=== PATIENT | female | born 1960 | race Caucasian/White ===

== ENCOUNTER 2018-05-17 17:29 | Outpatient (REF) | payer OTHER, SELFPAY ==
[2018-05-17 21:46] LABS: Abs Immature Grans 0.01 k/cumm (0.0-0.09); Absolute Basophil Count 0.04 k/cumm (0.0-0.2); Absolute Eosinophil Count 0.16 k/cumm (0.0-0.7); Absolute Lymphocyte Count 2.67 k/cumm (1.2-3.4); Absolute Monocyte Count 0.52 k/cumm (0.11-0.7); Absolute Neutrophil Count 5.53 k/cumm (1.2-6.7); Basophils % 0.4; Eosinophils % 1.8; HCT 41.5 % (36.0-46.0); HGB 13.5 g/dL (12.0-15.5); Immature Grans % 0.1; Lymphocytes % 29.9; Mean Corp. HGB Concentration 32.5 g/dL (32.0-36.0); Mean Corpuscular Hemoglobin 28.2 pg (27.0-33.0); Mean Corpuscular Volume 86.8 fL (80-95); Mean Platelet Volume 11.1 fL (8.0-11.0); Monocytes % 5.8; Platelet Count 236 x1000/uL (130-400); RBC 4.78 m/cumm (4.00-5.20); RBC Distribution Width 13.3 % (11.7-14.6); White Blood Cell Count 8.93 k/cumm (4.4-10.8)
[2018-05-17 22:27] LABS: ALT 27 U/L (12-78); AST 19 U/L (15-37); Albumin 3.9 g/dL (3.4-5.0); Alkaline Phosphatase 93 U/L (46-116); Anion Gap 8.2 mmol/L (3-11); BUN 12 mg/dL (7-18); Bilirubin, Total 0.5 mg/dL (0.2-1.0); CO2 27.8 mmol/L (21.0-32.0); Calcium 8.9 mg/dL (8.5-10.1); Chloride 101 mmol/L (98-107); Cholesterol 214 mg/dL (50-200); Glucose 85 mg/dL (70-100); HDL Cholesterol 58 mg/dL (40-60); LDL CHOLESTEROL 141 mg/dL (<100); Potassium 4.3 mmol/L (3.5-5.1); Sodium 137 mmol/L (136-145); Total Protein 7.6 g/dL (6.4-8.2); Triglyceride 142 mg/dL (30-150)
== END 2018-05-17 17:49 ==
LOC: NCHCN 17:29
PROVIDERS: PCP Nurse Practitioner Family; Visit Provider Physician Assistant Medical
DX: C50.919 Malignant neoplasm of unspecified site of unspecified female breast (principal); I10 Essential (primary) hypertension; Z00.00 Encounter for general adult medical examination without abnormal findings
CPT/HCPCS: 80053; 80061; 83721; 85025

== ENCOUNTER 2018-06-11 01:05 | Outpatient (CLI) | payer OTHER, SELFPAY ==
--- NOTE | 2018-06-11 13:25 | DI.MAMMO_ITS ---
SYMPTOM/DIAGNOSIS: SCREENING, Z12.31, PERSONAL H/O LT BREAST CA, LUMPECTOMY MAMMOGRAMS: Mammograms were interpreted according to the usual protocol including computer analysis with CAD system, tomosynthesis and C view imaging. Comparison is made with prior examinations. Breast density, category B. The patient is status post left lumpectomy. No suspicious masses or microcalcifications are seen. There has been no significant change compared to the prior examinations. IMPRESSION: No evidence for malignancy. Yearly mammography is recommended. Category 2. The findings were discussed with the patient on the date of the examination. SA ASSESSMENT OF FINDINGS: Negative with benign findings. Category 2. Patient will receive a letter notifying them of these results. BI-RADS category B. There are scattered areas of fibroglandular density.
== END 2018-06-11 01:25 ==
PROVIDERS: PCP Nurse Practitioner Family; Visit Provider Nurse Practitioner Family
DX: Z12.31 Encounter for screening mammogram for malignant neoplasm of breast (principal); Z85.3 Personal history of malignant neoplasm of breast; Z98.890 Other specified postprocedural states
CPT/HCPCS: 77063; 77067

== ENCOUNTER 2018-12-02 08:17 | Outpatient (REF) | payer OTHER, SELFPAY ==
[2018-12-02 13:12] LABS: Uric Acid 5.3 mg/dL (2.6-6.0)
[2018-12-02 13:46] LABS: ESR 24 MM/HR (0-30)
== END 2018-12-02 08:37 ==
LOC: NCHCN 08:17
PROVIDERS: PCP Physician Assistant Medical; Visit Provider Physician Assistant Medical
DX: M79.672 Pain in left foot (principal)
CPT/HCPCS: 85652; 84550; 86140

== ENCOUNTER 2018-12-21 16:35 | Outpatient (CLI) | payer OTHER, SELFPAY ==
--- NOTE | 2018-12-21 16:28 | DI.RAD_ITS ---
SYMPTOM/DIAGNOSIS: LT FOOT PAIN, M79.671 LEFT FOOT: The bony structures are normally mineralized. A moderate hallux valgus deformity is demonstrated and there are degenerative changes involving the first metatarsal phalangeal joint. A small calcaneal spur is identified. There is no evidence of a fracture or dislocation.
== END 2018-12-21 16:55 ==
PROVIDERS: PCP Physician Assistant Medical; Visit Provider Physician Assistant Medical
DX: M79.672 Pain in left foot (principal); M20.12 Hallux valgus (acquired), left foot; M19.072 Primary osteoarthritis, left ankle and foot; M77.32 Calcaneal spur, left foot
CPT/HCPCS: 73630

== ENCOUNTER 2019-02-04 16:14 | Outpatient (REF) | payer OTHER, SELFPAY ==
--- NOTE | 2019-02-04 15:50 | PAPFT_PTH ---
PATIENT: Yulisa Campos LOC: [facility] U#:[id number] AGE/SX: 58/F ROOM: RE02/04/[address]: LILIYA Dave : 1960 BED: DIS: 02/04/2019 SPEC #: [id number] RECD: 02/04/19 17:37 STATUS: CHYNA REFracisco #: [id number] GALA: 02/04/19 15:[address]: Merry Hugo DEPT: [facility] Cytology RECD BY: Ligia Omalley ENTERED: 02/04/19 17:37 SP TYPE: PAPFT ELLIOT DR: Naun Carrillo Tissues: 1 - CX/ENDOCX FOR PAP SMEARS Procedures: PAP THIN PREP/UVM Screening HPV DNA PROBE Comments: [id number]
== END 2019-02-04 16:34 ==
LOC: LBN 16:14
PROVIDERS: PCP Physician Assistant Medical; Visit Provider Nurse Practitioner Family
DX: Z12.4 Encounter for screening for malignant neoplasm of cervix (principal); Z11.51 Encounter for screening for human papillomavirus (HPV)
CPT/HCPCS: 88142; 87624

== ENCOUNTER 2019-05-23 18:25 | Outpatient (REF) | payer OTHER, SELFPAY ==
[2019-05-23 22:36] LABS: Anion Gap 10.9 mmol/L (3-11); BUN 13 mg/dL (7-18); CO2 27.1 mmol/L (21.0-32.0); CREATININE 0.74 mg/dL (0.55-1.02); Calcium 9.4 mg/dL (8.5-10.1); Calculated LDL 153 mg/dL; Chloride 101 mmol/L (98-107); Cholesterol 239 mg/dL (50-200); Glucose 87 mg/dL (70-100); HDL Cholesterol 60 mg/dL (40-60); Potassium 4.6 mmol/L (3.5-5.1); Sodium 139 mmol/L (136-145); Triglyceride 133 mg/dL (30-150)
== END 2019-05-23 18:45 ==
LOC: NCHCN 18:25
PROVIDERS: PCP Physician Assistant Medical; Visit Provider Nurse Practitioner Family
DX: Z00.00 Encounter for general adult medical examination without abnormal findings (principal); Z13.228 Encounter for screening for other metabolic disorders; Z13.220 Encounter for screening for lipoid disorders
CPT/HCPCS: 80048; 80061

== ENCOUNTER 2019-06-13 01:01 | Outpatient (CLI) | payer OTHER, SELFPAY ==
--- NOTE | 2019-06-13 08:52 | DI.MAMMO_ITS ---
EXAM: MG MAMMO SCREENING 60 MIN DUR CLINICAL HISTORY: Personal Hx L Breast Cancer - lumpectomy, screening, Z12.31 TECHNIQUE: Mammograms were interpreted according to the usual protocol including computer analysis w [facility] CAD system, tomosynthesis and C-view imaging. COMPARISON: 2009 through 2017. FINDINGS: Breast Density - Category B - Scattered areas of fibroglandular density lumpectomy scarring seen in the lower inner quadrant of the left breast. No suspicious masses suspic ious seen in change in either breast. IMPRESSION: BI-RADS Cat 2 - Benign Findings, no specific evidence of malignancy at this time. Routine screening e xaminations are suggested at yearly intervals in this age group according to the ACS ACR guidelines. Breast Density - Category B - Scattered areas of fibroglandular density
== END 2019-06-13 01:21 ==
PROVIDERS: PCP Physician Assistant Medical; Visit Provider Nurse Practitioner Family
DX: Z12.31 Encounter for screening mammogram for malignant neoplasm of breast (principal); Z85.3 Personal history of malignant neoplasm of breast; Z98.890 Other specified postprocedural states
CPT/HCPCS: 77063; 77067

== ENCOUNTER 2019-07-26 00:16 | Outpatient (CLI) | payer OTHER, SELFPAY ==
--- NOTE | 2019-07-26 09:30 | ETT_ITS ---
APPROVED REPORT Exam: Exercise Treadmill Patient Location: Out-Patient Room/Bed: Stress Nurse: Tona Stephenson RN BMI: 30.11 Baseline Rhythm: NSR Indications: Pre-Operative CV Evaluation Medical History Medical History: HTN, Hyperlipidemia Cardiac Medications: Aspirin, Atenolol, Losartan Allergies: No known drug allergies Cardiac Risk Factors: HTN, Hyperlipidemia, FHX of CAD Pretest Chest Pain Characteristics: No chest pain Exercise History: Physically active Lung Sounds: Clear to auscultation Heart Sounds: Regular Stress Test Details Test: Exercise stress testing was performed using a Ja protocol. Rest Stress HR Resting HR: 86 bpm Max Heart Rate (APMHR): 160 bpm Resting HR Supine: 86 bpm Target HR (85% APMHR): 136 bpm Resting HR Standin bpm Max HR Achieved: 154 bpm % of APMHR: 96 Recovery HR: 94 bpm HR response to stress: Accelerated HR response to stress BP Resting BP: 184/100 mmHg Resting BP Supine: 184/100 mmHg Resting BP Standin/98 mmHg Max BP: 214/100 mmHg Recovery BP: 190/100 mmHg BP response to stress: Abnormal hypertensive response to stress. ECG Resting ECG: Sinus Rhythm Stress ECG: Sinus Tachycardia ST Change: Normal Arrhythmia: None Recovery ECG: Sinus Rhythm Recovery ST Change: Normal Time of Change: [address] Deviation: 0 mm Recovery Arrhythmia: None Clinical Time of Stop for Ja: 6:00 Reason for Termination: Target HR Achieved, elevated BP Exercise duration: 6 min0 sec Highest Stage Achieved: Stage 2: 2.5 mph at 12% grade. Exercise capacity: 7.05 METs Functional Capacity: Average Capacity Stress ECG Conclusion 1. She exercised for a total of 6 minutes (7 METS). This represents average exercise capacity 2. There were no ST changes associated with stress that would suggest ischemia 3. The Tellez Score (5) estimates an annual cardiovascular mortality of 1% and a five year survival of 94%. Using the Tellez Score there is a low probability of any angiographic coronary disease. Protocol Used: Ja Protocol Stress Test Summary STAGE Time (mins) Speed (mph) Grade (%) HR BP SYMPTOMS METS Supine 86 184/100 Standing 87 182/98 1 3 1.7 10 146 200/98 none 4.6 2 6 2.5 12 150 208/104 none 7 3 9 3.4 14 10.2 4 12 4.2 16 12.9 5 15 5.0 18 17.2 1 min recovery 128 214/100 3 min recovery 98 194/100 6 min recovery 94 190/100
== END 2019-07-26 00:36 ==
PROVIDERS: PCP Physician Assistant Medical; Visit Provider Surgery
DX: R07.89 Other chest pain (principal); I10 Essential (primary) hypertension; E78.5 Hyperlipidemia, unspecified; Z01.810 Encounter for preprocedural cardiovascular examination; Z82.49 Family history of ischemic heart disease and other diseases of the circulatory system
CPT/HCPCS: 93017

== ENCOUNTER 2020-05-28 17:56 | Outpatient (REF) | payer OTHER, SELFPAY ==
[2020-05-28 20:08] LABS: Anion Gap 6.6 mmol/L (3-11); BUN 10 mg/dL (7-18); CO2 28.4 mmol/L (21.0-32.0); CREATININE 0.73 mg/dL (0.55-1.02); Calcium 9.3 mg/dL (8.5-10.1); Calculated LDL 140 mg/dL (<100); Chloride 103 mmol/L (98-107); Cholesterol 220 mg/dL (<200); Glucose 85 mg/dL (74-106); HDL Cholesterol 57 mg/dL (40-60); Potassium 4.4 mmol/L (3.5-5.1); Sodium 138 mmol/L (136-145); Triglyceride 117 mg/dL (<150)
== END 2020-05-28 18:16 ==
LOC: NCHCN 17:56
PROVIDERS: PCP Physician Assistant Medical; Visit Provider Nurse Practitioner Family
DX: E78.5 Hyperlipidemia, unspecified (principal); I10 Essential (primary) hypertension
CPT/HCPCS: 80048; 80061

== ENCOUNTER 2020-06-21 01:41 | Outpatient (CLI) | payer OTHER, SELFPAY ==
--- NOTE | 2020-06-21 08:00 | DI.MAMMO_ITS ---
EXAM: MG MAMMO SCREENING 60 MIN DUR CLINICAL HISTORY: breast cancer screening,PERSONAL H/O LT BREAST CA, LUMPECTOMY,Z12.39 TECHNIQUE: Bilateral full field digital CC and MLO mammographic images were obtained with 3D tomosyn thesis and utilizing computer aided detection (CAD). COMPARISON: Available for comparison. FINDINGS: Masses/Architectural Distortion: None seen. Status post left lumpectomy. Microcalcifications: No suspicious pleomorphic-type are seen. Skin Thickening/Nipple Retraction: None. IMPRESSION: 1. No significant interval change with no specific features of malignancy noted. 2. Unless there is more urgent need, screening mammography is recommended, as per [place] [employer] guidelines. 3. Findings were discussed with the patient on the date of the examination. BI-RADS Category 2 - Benign Findings Breast Density - Category B - Scattered areas of fibroglandular density A negative radiographic report should not delay biopsy if a dominant or clinically suspicious mass is present. Up to ten percent of cancers are not identified on mammography. A negative report may reinforce clinical impression. Adenosis and dense breasts may obscure an underlying neoplasm. False positive reports average 6 to 10%. Patient will receive a letter notifying them of these results.
== END 2020-06-21 02:01 ==
PROVIDERS: PCP Nurse Practitioner Family; Visit Provider Nurse Practitioner Family
DX: Z12.31 Encounter for screening mammogram for malignant neoplasm of breast (principal); Z85.3 Personal history of malignant neoplasm of breast
CPT/HCPCS: 77063; 77067

== ENCOUNTER 2020-07-24 08:32 | Outpatient (REF) | payer SELFPAY ==
[2020-07-26 18:35] LABS: Patient Race White; SARS-CoV-2 RNA Undetected (Undetected); SARS-CoV-2 Specimen Source Nasal
== END 2020-07-24 08:52 ==
LOC: NCHCN 08:32
PROVIDERS: PCP Nurse Practitioner Family; Visit Provider Nurse Practitioner Family
DX: Z11.59 Encounter for screening for other viral diseases (principal)
CPT/HCPCS: U0003

== ENCOUNTER 2021-05-29 21:59 | Outpatient (REF) | payer OTHER, SELFPAY ==
[2021-05-29 19:50] LABS: HCT 41.2 % (36.0-46.0); HGB 13.2 g/dL (11.2-15.7)
[2021-05-29 19:59] LABS: ALT 32 U/L (14-59); AST 18 U/L (15-37); Alkaline Phosphatase 89 U/L (46-116); Anion Gap 8.6 mmol/L (3-11); BUN 9 mg/dL (7-18); Bilirubin, Total 0.5 mg/dL (0.2-1.0); CO2 29.4 mmol/L (21.0-32.0); CREATININE 0.8 mg/dL (0.55-1.02); Calcium 9.5 mg/dL (8.5-10.1); Calculated LDL 122 mg/dL (<100); Chloride 102 mmol/L (98-107); Cholesterol 209 mg/dL (<200); Glucose 94 mg/dL (74-106); HDL Cholesterol 53 mg/dL (40-60); Potassium 4.5 mmol/L (3.5-5.1); Sodium 140 mmol/L (136-145); Total Protein 7.6 g/dL (6.4-8.2); Triglyceride 174 mg/dL (<150)
[2021-05-29 20:29] LABS: Hemoglobin A1C 6.6 % (<5.7)
== END 2021-05-29 22:00 | disposition home or self-care (01) ==
LOC: NCHCN 21:59
PROVIDERS: PCP Nurse Practitioner Family; Visit Provider Physician Assistant Medical
DX: Z00.00 Encounter for general adult medical examination without abnormal findings (principal); E78.5 Hyperlipidemia, unspecified; Z85.3 Personal history of malignant neoplasm of breast; Z13.1 Encounter for screening for diabetes mellitus
CPT/HCPCS: 80053; 80061; 83036; 85014; 85018

== ENCOUNTER 2021-07-01 01:23 | Outpatient (CLI) | payer OTHER, SELFPAY ==
--- NOTE | 2021-07-01 15:01 | DI.MAMMO_ITS ---
Exam(s) MG MAMMO SCREENING 60 MIN DUR EXAM: MG MAMMO SCREENING 60 MIN DUR CLINICAL HISTORY: breast cancer screening,Z12.39, PERSONAL H/O BREAST CA. TECHNIQUE: Bilateral full field digital CC and MLO mammographic images were obtained with 3D tomosyn thesis and utilizing computer aided detection (CAD). COMPARISON: Prior mammograms dating back to 2011, the most recent being June 2020. FINDINGS: There are no CAD designations Left breast lumpectomy site remains stable exception of a benign appearing calcification at this leve l, not previously present.. There are no new spiculated masses nor malignant appearing microcalcification groups. There is no new significant architectural distortion nor skin thickening-retraction. IMPRESSION: Benign findings. No radiographic evidence of malignancy. BI-RADS Category 2 - Benign Findings Breast Density - Category B - Scattered areas of fibroglandular density Breast density Category C or D implies that the patient has dense breast tissue. Dense breast tissue can make it harder to find cancer on a mammogram. Dense breast tissue is also associated with an incr eased risk of breast cancer. This information about the result of the mammogram report was provided to the patient to raise their awareness. Use this report when you speak with the patient about their risks for breast cancer, which includes their family history. At that time, you may recommend additional screening tests (Ultrasoun d or MRI) as these tests may add significant information. A negative radiographic report should not delay biopsy if a dominant or clinically suspicious mass is present. Up to ten percent of cancers are not identified on mammography. A negative report may reinforce clinical impression. Adenosis and dense breasts may obscure an underlying neoplasm. False positive reports average 6 to 10%. Patient will receive a letter notifying them of these results.
== END 2021-07-01 01:43 ==
PROVIDERS: PCP Nurse Practitioner Family; Visit Provider Nurse Practitioner Family
DX: Z12.31 Encounter for screening mammogram for malignant neoplasm of breast (principal); Z85.3 Personal history of malignant neoplasm of breast
CPT/HCPCS: 77063; 77067

== ENCOUNTER → 2022-02-05 16:37 | Outpatient (CLI) | payer OTHER, SELFPAY ==
--- NOTE | 2022-02-05 14:26 | DI.RAD_ITS ---
Exam(s) XR FOOT LT COMPLETE EXAM: XR FOOT LT COMPLETE CLINICAL HISTORY: LEFT FOOT PAIN - M79.672 TECHNIQUE: COMPARISON: CR XR foot LT complete from 12/21/2018 FINDINGS: Three views were obtained. There are small enthesophytes of the sites of attachment of plantar fasci a and Achilles tendon on the calcaneus. There are mild bustillo articular degenerative changes of the gloria nts of the foot. There is a mild hallux valgus deformity. No other significant findings. IMPRESSION: RADIATION DOSE DELIVERED: Total DLP
== END ==
PROVIDERS: PCP Nurse Practitioner Family; Visit Provider Physician Assistant Medical
DX: M79.672 Pain in left foot (principal); M20.12 Hallux valgus (acquired), left foot; M77.52 Other enthesopathy of left foot and ankle
CPT/HCPCS: 73630

== ENCOUNTER 2022-03-28 16:30 | Outpatient (REF) | payer OTHER, SELFPAY ==
--- NOTE | 2022-03-28 15:00 | PAPFT_PTH ---
PATIENT: Yulisa Campos LOC: [facility] U#:[id number] AGE/SX: 61/F ROOM: RE03/28/[address]: LILIYA Dave : 1960 BED: DIS: 03/28/2022 SPEC #: [id number] RECD: 03/28/22 17:39 STATUS: CHYNA REQ #: [id number] GALA: 03/28/22 15:[address]: Merry Hugo DEPT: [facility] Cytology RECD BY: Ligia Omalley ENTERED: 03/28/22 17:39 SP TYPE: PAPFT OTHR DR: Catrachita Alberts Tissues: 1 - CX/ENDOCX FOR PAP SMEARS Procedures: PAP THIN PREP/[facility] Screening HPV DNA PROBE Comments: [id number]
== END 2022-03-28 16:31 | disposition home or self-care (01) ==
LOC: LBN 16:30
PROVIDERS: PCP Nurse Practitioner Family; Visit Provider Nurse Practitioner Family
DX: Z12.4 Encounter for screening for malignant neoplasm of cervix (principal); Z11.51 Encounter for screening for human papillomavirus (HPV)
CPT/HCPCS: 88142; 87624

== ENCOUNTER → 2022-05-17 12:47 | Outpatient (CLI) | payer OTHER, SELFPAY ==
--- NOTE | 2022-05-17 | DI.RAD_ITS ---
Exam(s) XR ELBOW RT COMPLETE EXAM: XR ELBOW RT COMPLETE CLINICAL HISTORY: Blunt trauma to RT elbow. RT elbow pain.. TECHNIQUE: 2D digital imaging was performed. COMPARISON: No exams were available for comparison FINDINGS: 3 views There is mild soft tissue swelling posteriorly but no evidence of acute fracture nor prominent elbow joint effusion. Radial neck and head appear unremarkable. There are changes at the level both epicondyles which may indicate bilateral epicondylitis. IMPRESSION: DATA REPOSITORY: RADIATION DOSE DELIVERED:
--- NOTE | 2022-05-17 13:47 | DI.VRAD_ITS ---
PROCEDURE INFORMATION: Exam: XR Right Elbow Exam date and time: 05/17/2022 1:05 PM Age: 61 years old Clinical indication: Right; Patient HX: PT hit elbow on desk yesterday - worsening pain. TECHNIQUE: Imaging protocol: Radiologic exam of the Right elbow. Views: 3 or more views. COMPARISON: No relevant prior studies available. FINDINGS: Bones/joints: No fracture or dislocation. No joint effusion. Soft tissues: Soft tissue swelling dorsal aspect of the elbow. IMPRESSION: 1. No evidence for acute bony injury. If clinical symptoms persist recommend followup film in 7-10 days. 2. Soft tissue swelling dorsal aspect of elbow. Dictated and Authenticated by: Kala Keita MD. Ordering:SOFIA Green MD
== END ==
PROVIDERS: PCP Nurse Practitioner Family; Visit Provider Physician Assistant Medical
DX: M25.521 Pain in right elbow (principal); M79.89 Other specified soft tissue disorders
CPT/HCPCS: 73080

== ENCOUNTER → 2022-07-04 00:47 | Outpatient (CLI) | payer OTHER, SELFPAY ==
--- NOTE | 2022-07-04 08:00 | DI.MAMMO_ITS ---
Exam(s) MG MAMMO SCREENING 60 MIN DUR EXAM: MG MAMMO SCREENING 60 MIN DUR CLINICAL HISTORY: breast cancer screening,personal h/o breast ca,z12.39 TECHNIQUE: Bilateral full field digital CC and MLO mammographic images were obtained with 3D tomosyn thesis and utilizing computer aided detection (CAD). COMPARISON: Available for comparison. FINDINGS: Masses/Architectural Distortion: The patient is status post left breast lumpectomy. No suspicious ma sses or suspicious areas of architectural distortion are identified. Microcalcifications: No suspicious pleomorphic-type are seen. Skin Thickening/Nipple Retraction: None. IMPRESSION: 1. No significant interval change with no specific features of malignancy noted. 2. Unless there is more urgent need, screening mammography is recommended, as per [place] [employer] guidelines. 3. Findings were discussed with the patient on the date of the examination. BI-RADS Category 2 - Benign Findings Breast Density - Category B - Scattered areas of fibroglandular density Breast density category C or D implies that the patient has dense breast tissue. Dense breast tissue is very common and is not abnormal but dense breast tissue can make it harder to find cancer on a ma mmogram. Also, dense breast tissue may increase their breast cancer risk. This information about the result of the mammogram report was provided to the patient to raise their awareness. Use this report when you speak with the patient about their risks for breast cancer, which includes their family hist ory. At that time, you may recommend for more screening tests (Ultrasound or MRI) as they might be us eful based on their risk. A negative radiographic report should not delay biopsy if a dominant or clinically suspicious mass is present. Up to ten percent of cancers are not identified on mammography. A negative report may reinforce clinical impression. Adenosis and dense breasts may obscure an underlying neoplasm. False positive reports average 6 to 10%. Patient will receive a letter notifying them of these results.
== END ==
PROVIDERS: PCP Nurse Practitioner Family; Visit Provider Nurse Practitioner Family
DX: Z12.31 Encounter for screening mammogram for malignant neoplasm of breast (principal)
CPT/HCPCS: 77063; 77067

== ENCOUNTER 2022-08-04 15:16 | Outpatient (REF) | payer OTHER, SELFPAY ==
[2022-08-05 01:57] LABS: COVID-19 RT-PCR UVMMC Result Negative (Negative)
== END 2022-08-04 15:17 | disposition home or self-care (01) ==
LOC: NCHCN 15:16
PROVIDERS: PCP Nurse Practitioner Family; Visit Provider Physician Assistant Medical
DX: Z20.822 Contact with and (suspected) exposure to COVID-19 (principal)
CPT/HCPCS: U0003

== ENCOUNTER 2022-08-18 08:44 | Outpatient (REF) | payer OTHER, SELFPAY ==
[2022-08-18 15:04] LABS: Abs Immature Grans 0.03 10^3/uL (0.0-0.06); Absolute Basophil Count 0.06 10^3/uL (0.0-0.2); Absolute Eosinophil Count 0.18 10^3/uL (0.0-0.7); Absolute Lymphocyte Count 1.65 10^3/uL (1.2-3.4); Absolute Neutrophil Count 6.16 10^3/uL (1.2-6.7); Basophils % 0.7; Eosinophils % 2.1; HCT 41.6 % (36.0-46.0); HGB 13.2 g/dL (11.2-15.7); Immature Grans % 0.3; Lymphocytes % 19.2; MCH 27.8 pg (27.0-33.0); MCHC 31.7 % (32.0-36.0); MCV 88 fL (80-95); MPV 10.9 fL (8.0-11.0); Monocytes % 5.8; Neutrophils % 71.9; Platelet Count 273 10^3/uL (130-400); RBC 4.74 10^6/uL (3.93-5.22); RDW-SD 42.1 fL; WBC 8.58 10^3/uL (4.4-10.8)
[2022-08-18 15:22] LABS: ALT 32 U/L (14-59); AST 22 U/L (15-37); Albumin 3.9 g/dL (3.4-5.0); Alkaline Phosphatase 93 U/L (46-116); Anion Gap 11.4 mmol/L (3-11); BUN 14 mg/dL (7-18); Bilirubin, Total 0.4 mg/dL (0.2-1.0); CO2 25.6 mmol/L (21.0-32.0); CREATININE 0.9 mg/dL (0.55-1.02); Calcium 8.8 mg/dL (8.5-10.1); Calculated LDL 140 mg/dL (<100); Chloride 105 mmol/L (98-107); Cholesterol 223 mg/dL (<200); Estimated GFR 71.83 (mL/min/1.73m2); Glucose 140 mg/dL (74-106); HDL Cholesterol 57 mg/dL (40-60); Potassium 4.4 mmol/L (3.5-5.1); Sodium 142 mmol/L (136-145); Total Protein 7.2 g/dL (6.4-8.2); Triglyceride 130 mg/dL (<150)
[2022-08-19 15:57] LABS: Hemoglobin A1C 6.3 % (<5.7)
== END 2022-08-18 08:45 | disposition home or self-care (01) ==
LOC: NCHCN 08:44
PROVIDERS: PCP Nurse Practitioner Family; Visit Provider Physician Assistant Medical
DX: Z00.00 Encounter for general adult medical examination without abnormal findings (principal); R73.03 Prediabetes; Z85.3 Personal history of malignant neoplasm of breast; Z90.12 Acquired absence of left breast and nipple; E78.5 Hyperlipidemia, unspecified
CPT/HCPCS: 80053; 80061; 83036; 85025

== ENCOUNTER → 2023-07-17 03:05 | Outpatient (CLI) | payer BC, SELFPAY ==
--- NOTE | 2023-07-17 10:56 | DI.MAMMO_ITS ---
Exam(s) MG MAMMO SCREENING 60 MIN DUR EXAM: MG MAMMO SCREENING 60 MIN DUR CLINICAL HISTORY: screening, personal h/o breast ca,z12.39,z85.3 TECHNIQUE: Mammograms were interpreted according to the usual protocol including computer analysis w [employer] CAD system, tomosynthesis and C-view imaging. COMPARISON: 2013 through 2021 FINDINGS: The breasts are composed of scattered fibroglandular densities, Breast Density category B. No suspicious masses or suspicious microcalcifications are seen. Mild scarring inferior left breast. No skin thickening or abnormal axillary lymph nodes are seen. There has been no significant change from prior exams. IMPRESSION: BI-RADS Category 2 - Negative Mammogram with benign findings. Yearly screening mammography is recom mended. Breast Density - Category B, scattered fibroglandular densities. A negative radiographic report should not delay biopsy if a dominant or clinically suspicious mass is present. Up to ten percent of cancers are not identified on mammography. A negative report may reinforce clinical impression. Adenosis and dense breasts may obscure an underlying neoplasm. False positive reports average 6 to 10%. Patient will receive a letter notifying them of these results.
== END ==
PROVIDERS: PCP Nurse Practitioner Family; Visit Provider Nurse Practitioner Women's Health
DX: Z12.31 Encounter for screening mammogram for malignant neoplasm of breast (principal); Z85.3 Personal history of malignant neoplasm of breast
CPT/HCPCS: 77063; 77067

== ENCOUNTER 2023-09-22 16:06 | Outpatient (REF) | payer BC, SELFPAY ==
[2023-09-22 19:50] LABS: ALT 42 U/L (14-59); AST 27 U/L (15-37); Alkaline Phosphatase 79 U/L (46-116); Anion Gap 8.3 mmol/L (3-11); BUN 9 mg/dL (7-18); Bilirubin, Total 0.6 mg/dL (0.2-1.0); CO2 28.7 mmol/L (21.0-32.0); CREATININE 0.8 mg/dL (0.55-1.02); Calcium 9.4 mg/dL (8.5-10.1); Calculated LDL 141 mg/dL (<100); Chloride 102 mmol/L (98-107); Cholesterol 213 mg/dL (<200); Estimated GFR 81.72 (mL/min/1.73m2); Glucose 97 mg/dL (74-106); HDL Cholesterol 47 mg/dL (40-60); Potassium 4.6 mmol/L (3.5-5.1); Sodium 139 mmol/L (136-145); Total Protein 7.5 g/dL (6.4-8.2); Triglyceride 129 mg/dL (<150)
[2023-09-22 20:19] LABS: Hemoglobin A1C 6.4 % (<5.7)
== END 2023-09-22 16:07 | disposition home or self-care (01) ==
LOC: NCHCN 16:06
PROVIDERS: PCP Nurse Practitioner Family; Visit Provider Physician Assistant Medical
DX: I10 Essential (primary) hypertension (principal); R73.03 Prediabetes
CPT/HCPCS: 80053; 80061; 83036

== ENCOUNTER 2024-05-16 15:49 | Outpatient (REF) | payer BC, SELFPAY ==
--- NOTE | 2024-05-16 15:40 | PAPFT_PTH ---
PATIENT: Yulisa Campos LOC: [facility] U#:[id number] AGE/SX: 63/F ROOM: RE05/16/[address]: Lavonne Haynes NP : 1960 BED: DIS: 05/16/2024 SPEC #: [id number] RECD: 05/16/24 18:29 STATUS: MORGANLove REFracisco #: [id number] GALA: 05/16/24 15:[address]: Lavonne Haynes NP DEPT: [facility] Cytology RECD BY: Ligia Omalley ENTERED: 05/16/24 18:30 SP TYPE: PAPFT OTHR DR: Catrachita Alberts Tissues: 1 - CX/ENDOCX FOR PAP SMEARS Procedures: PAP THIN PREP/[facility] Screening HPV DNA PROBE Comments: [id number] (HPV 16 & 18/45)
== END 2024-05-16 15:50 | disposition home or self-care (01) ==
LOC: LBN 15:49
PROVIDERS: PCP Nurse Practitioner Family; Visit Provider Nurse Practitioner Women's Health
DX: Z11.51 Encounter for screening for human papillomavirus (HPV) (principal); Z01.419 Encounter for gynecological examination (general) (routine) without abnormal findings
CPT/HCPCS: 88142; 87624

== ENCOUNTER 2024-07-22 00:26 | Outpatient (CLI) | payer BC, SELFPAY ==
--- NOTE | 2024-07-22 11:07 | DI.MAMMO_ITS ---
Exam(s) MG MAMMO SCREENING 60 MIN DUR EXAM: MG MAMMO SCREENING 60 MIN DUR CLINICAL HISTORY: breast cancer screening,PERSONAL H/O BREAST CA,Z12.39,Z85.2 TECHNIQUE: Mammograms were interpreted according to the usual protocol including computer analysis w [employer] CAD system, tomosynthesis and C-view imaging. COMPARISON: 2014 through 2022 FINDINGS: The breasts are composed of scattered fibroglandular densities, Breast Density category B. No suspicious masses or suspicious microcalcifications are seen. Stable area scarring in the lower i nner quadrant related to previous lumpectomy. No skin thickening or abnormal axillary lymph nodes are seen. There has been no significant change from prior exams. IMPRESSION: BI-RADS Category 2 - Benign Findings Yearly screening mammography is recommended. Breast Density - Category B, scattered fibroglandular densities. A negative radiographic report should not delay biopsy if a dominant or clinically suspicious mass is present. Up to ten percent of cancers are not identified on mammography. A negative report may reinforce clinical impression. Adenosis and dense breasts may obscure an underlying neoplasm. False positive reports average 6 to 10%. Patient will receive a letter notifying them of these results.
== END 2024-07-22 00:46 ==
LOC: DI 00:26
PROVIDERS: PCP Physician Assistant Medical; Visit Provider Nurse Practitioner Women's Health
DX: Z85.3 Personal history of malignant neoplasm of breast (principal); Z12.31 Encounter for screening mammogram for malignant neoplasm of breast; R92.323 Mammographic fibroglandular density, bilateral breasts; D24.9 Benign neoplasm of unspecified breast
CPT/HCPCS: 77063; 77067

== ENCOUNTER 2024-11-16 22:43 | Outpatient (REF) | payer OTHER, SELFPAY ==
[2024-11-16 20:31] LABS: HCT 41.7 % (36.0-46.0); HGB 13.6 g/dL (11.2-15.7); MCH 28.2 pg (27.0-33.0); MCHC 32.6 % (32.0-36.0); MCV 86 fL (80-95); MPV 10.6 fL (8.0-11.0); Platelet Count 255 10^3/uL (130-400); RBC 4.83 10^6/uL (3.93-5.22); RDW 12.8 % (11.7-14.6); WBC 9.95 10^3/uL (4.4-10.8)
[2024-11-16 20:52] LABS: Hemoglobin A1C 6.4 % (<5.7)
[2024-11-16 20:55] LABS: ALT 26 U/L (14-59); AST 26 U/L (15-37); Albumin 3.9 g/dL (3.4-5.0); Alkaline Phosphatase 94 U/L (46-116); Anion Gap 7.9 mmol/L (3-11); BUN 12 mg/dL (7-18); Bilirubin, Total 0.7 mg/dL (0.2-1.0); CO2 28.1 mmol/L (21.0-32.0); CREATININE 0.9 mg/dL (0.55-1.02); Calcium 9.4 mg/dL (8.5-10.1); Calculated LDL 135 mg/dL (<100); Chloride 103 mmol/L (98-107); Cholesterol 230 mg/dL (<200); Estimated GFR 70.51 (mL/min/1.73m2); Glucose 96 mg/dL (74-106); HDL Cholesterol 66 mg/dL (>or=50); Potassium 4.2 mmol/L (3.5-5.1); Sodium 139 mmol/L (136-145); Total Protein 7.7 g/dL (6.4-8.2); Triglyceride 147 mg/dL (<150)
== END 2024-11-16 22:44 | disposition home or self-care (01) ==
LOC: NCHCN 22:43
PROVIDERS: PCP Physician Assistant Medical; Visit Provider Physician Assistant Medical
DX: Z00.00 Encounter for general adult medical examination without abnormal findings (principal); R73.03 Prediabetes
CPT/HCPCS: 80053; 80061; 85027; 83036

== ENCOUNTER 2025-01-19 01:18 | Outpatient (CLI) | payer OTHER, SELFPAY ==
--- NOTE | 2025-01-19 | DI.DEXA_ITS ---
Exam(s) XR DEXA BONE DENSITY W/WO KRISTINA EXAM: XR DEXA BONE DENSITY W/WO KRISTINA CLINICAL HISTORY: Asymptomatic menopausal state, Z78.0; screening for osteoporosis TECHNIQUE: Routine DEXA evaluation of the lumbar spine, hip, or forearm. COMPARISON: Prior DEXA scan of November 2013. FINDINGS: Performed on a [employer] unit. Lateral image: No compression fracture evident. Lumbar Spine total T-score: -2.6. This is in the osteoporosis range. Prior reading in 2013 was -1.5 . Hip total T-score:-1.4. Prior reading in 2013 was -0.7 Independent reading at the level of the femoral neck yields T-score of -1.9. This is in the osteope torey range. Forearm total T-score: -2.4. This is in the osteopenia range. Prior reading in 2013 was 0.1 IMPRESSION: Bone mineral density measures in the osteoporosis range for the lumbar spine with fracture risk high at this level. Bone mineral density is in the osteopenia range for the hip and forearm. Fracture ri sk is moderate at these levels. Note: Any spine fracture indicates 5x risk for subsequent spine fracture and 2x risk for subsequent h ip fracture. World Health Organization criteria for BMD interpretation classify patients: Normal...... T- Score at or above -1.0 Osteopenic... T- Score between -1.0 and -2.5 Osteoporosis... T-Score at or below -2.5
== END 2025-01-19 01:38 ==
LOC: DI 01:18
PROVIDERS: PCP Physician Assistant Medical; Visit Provider Physician Assistant Medical
DX: M81.0 Age-related osteoporosis without current pathological fracture (principal); Z78.0 Asymptomatic menopausal state
CPT/HCPCS: 77080

== ENCOUNTER 2025-04-21 13:41 | Outpatient (CLI) | payer OTHER, SELFPAY ==
--- NOTE | 2025-04-21 12:03 | DI.RAD_ITS ---
Exam(s) XR FOOT LT COMPLETE EXAM: XR FOOT LT COMPLETE CLINICAL HISTORY: M79.675 Pain Left toe, Stubberd LT 5th digit, pain at MTP proximal 5th. TECHNIQUE: 2D digital imaging was performed. Three views. COMPARISON: CR XR FOOT LT COMPLETE from 02/05/2022 FINDINGS: BONES: On the oblique view, there is a questionable lucency through the distal phalanx of the 5th toe which could represent a nondisplaced fracture. No 5th metatarsal fracture is seen. No bony destructive lesion is seen. Heel spurs. JOINTS: No dislocation present. Mild hallux valgus and degenerative changes of 1st MTP joint. Degenerative changes are also present posteriorly are talar calcaneal joint. SOFT TISSUE: Normal. IMPRESSION: Question of a nondisplaced fracture of the distal phalanx of the 5th toe. DATA REPOSITORY: RADIATION DOSE DELIVERED:
== END 2025-04-21 14:01 ==
LOC: DI 05-04 13:41
PROVIDERS: PCP Physician Assistant Medical; Visit Provider Physician Assistant Medical
DX: M79.675 Pain in left toe(s) (principal); R93.89 Abnormal findings on diagnostic imaging of other specified body structures
CPT/HCPCS: 73630

== ENCOUNTER → 2025-07-27 06:13 | Outpatient (CLI) | payer OTHER, SELFPAY ==
--- NOTE | 2025-07-27 08:00 | DI.MAMMO_ITS ---
Exam(s) MG MAMMO SCREENING 60 MIN DUR EXAM: MG MAMMO SCREENING 60 MIN DUR CLINICAL HISTORY: breast cancer screening, PERSONAL HX OF BREAST CANCER Z85.3 TECHNIQUE: Mammograms were interpreted according to the usual protocol including computer analysis with CAD system, tomosynthesis and C-view imaging. COMPARISON: 2015 through 2023 FINDINGS: The breasts are composed of scattered fibroglandular densities, Breast Density category B. No suspicious masses or suspicious microcalcifications are seen. There is a an area of scarring in benign calcification again noted in the lower inner quadrant of the left breast related to prior lumpectomy.. No skin thickening or abnormal axillary lymph nodes are seen. There has been no significant change from prior exams. IMPRESSION: BI-RADS Category 2 - Benign Findings Yearly screening mammography is recommended. Breast Density - Category B - There are scattered areas of fibroglandular density. Breast density Category C or D implies that the patient has dense breast tissue. Dense breast tissue can make it harder to find cancer on a mammogram. Dense breast tissue is also associated with an increased risk of breast cancer. This information about the result of the mammogram report was provided to the patient to raise their awareness. Use this report when you speak with the patient about their risks for breast cancer, which includes their family history. At that time, you may recommend additional screening tests (Ultrasound or MRI) as these tests may add significant information. A negative radiographic report should not delay biopsy if a dominant or clinically suspicious mass is present. Up to ten percent of cancers are not identified on mammography. A negative report may reinforce clinical impression. Adenosis and dense breasts may obscure an underlying neoplasm. False positive reports average 6 to 10%. Patient will receive a letter notifying them of these results.
== END ==
PROVIDERS: PCP Physician Assistant Medical; Visit Provider Nurse Practitioner Women's Health
DX: Z85.3 Personal history of malignant neoplasm of breast (principal); Z12.31 Encounter for screening mammogram for malignant neoplasm of breast; R92.323 Mammographic fibroglandular density, bilateral breasts
CPT/HCPCS: 77063; 77067